=== PATIENT | male | born 1955 | race Caucasian/White ===

== ENCOUNTER 2016-10-01 12:18 | Inpatient (IN) | payer MEDICARE, OTHER ==
--- NOTE | ~2016-10-01 | EKG ---
PATIENT: DILLON CHAVEZ UNIT #: [id number] Ventricular Rate: 78 BPM Atrial Rate: 78 BPM P-R Interval: 176 ms QRS Duration: 100 ms Q-T Interval: 388 ms QTC Calculation(Bezet): 442 ms P [place]: 19 degrees Calculated R [place]: 9 degrees Calculated T [place]: 40 degrees Diagnosis Line: Normal sinus rhythm Diagnosis Line: Normal ECG Diagnosis Line: When compared with ECG of 01-APR-2016 14:00, Diagnosis Line: No significant change was found Diagnosis Line: Confirmed by YURY FORRESTER MD ([id number]) on 10/04/2016 Diagnosis Line: 3:59:20 PM INTERPRETING MD: MITZY FRAGA
--- NOTE | ~2016-10-01 | CR63 ---
[facility] A Service of [facility] & [facility] RADIOLOGY TEXT RESULTS PATIENT: DILLON CHAVEZ LOCATION: [place] [address]- : [birth year] UNIT #: [id number] AGE: [address]: Karla Mendenhall MD SEX: M ORDER DR: [id number] [facility] [address] [place], [place] [address] [id number] I MR#: [id number] Acc #: [id number] NAME: DILLON CHAVEZ : 1955 SEX: M STUDY DATE/TIME: 10/01/2016 15:29 UNIT: [facility] ROOM: [facility] STUDY DESCRIPTION: CR Chest 2 View Attending Physician: Karla Mendenhall M.D. Ordering Physician: Karla Mendenhall M.D. Primary Care Physician: Karla Mendenhall M.D. MEDICAL IMAGING REPORT This report is preliminary unless electronic signature is present EXAM 2-view chest HISTORY Chest pain x1 week, shortness of air. COMPARISON 04/01/2016 FINDINGS 2 views of the chest submitted. Study is suboptimal due to under penetrated technique. No definite infiltrates or effusions. There is cardiomegaly. No invasive tubes or lines identified. Osseous structures unremarkable. IMPRESSION Technically limited study due to under penetrated technique. There is stable cardiomegaly and diffuse aortic atherosclerotic changes but no definite acute abnormality. Dictated by... Myles Askew M.D. THIS IS AN ELECTRONICALLY VERIFIED REPORT Myles Askew M.D. at 10/03/2016 10:06 PM DYLON/tobi TD: 10/01/2016 18:59 JOB #: [id number] MEDICAL IMAGING REPORT Page 1 of 1 COPY
--- NOTE | ~2016-10-01 | HP ---
Unit #: [id number] #: [id number] Patient: DILLON CHAVEZ [id number] [address] [address] [id number] I MR#: [id number] NAME: DILLON CHAVEZ ROOM: 6 Age: 60 Sex: M Admission Date: 10/01/2016 : 1955 Attending Physician: Karla Mendenhall M.D. Primary Care Physician: Karla Mendenhall M.D. HISTORY AND PHYSICAL ADMISSION DIAGNOSES 1. Acute hypoxemic respiratory failure. 2. Acute exacerbation of chronic obstructive pulmonary disease. 3. Bronchitis versus pneumonia. 4. Diabetes. 5. Dyslipidemia. 6. Hypertension. 7. History of polio as a child with resultant hearing loss. 8. Chronic back pain. 9. Chronic lower extremity swelling. HISTORY OF PRESENT ILLNESS Mr. Chavez is a 60-year-old gentleman, patient of Dr. Karla Mendenhall, who was seen by Dr. Mendenhall today in the office with the complaints of increasing shortness of air and dyspnea, along with some yellow sputum production for two days. Patient denies any fever or chills, denies any chest pain, denies any headache or dizziness, denies any nausea, vomiting, diarrhea, or abdominal pain, and denies any syncope or presyncope. He was sent for direct admission. Currently, he appears without any significant respiratory distress. So, a 12-point review of systems on this patient basically is negative except as above. PAST MEDICAL HISTORY 1. Hypertension. 2. Diabetes. 3. Dyslipidemia. 4. History of polio. 5. Hearing loss. 6. Chronic back pain. 7. Chronic lower extremity swelling. PAST SURGICAL HISTORY Hernia repair. HOME MEDICATIONS I do not have them in front of me. These will be clarified with the pharmacy, and patient will be restarted accordingly. ALLERGIES Codeine. SOCIAL HISTORY He is a reformed smoker. He also states that he quit drinking a long time ago. No history of illicit drugs. Unit #: [id number] #: [id number] Patient: DILLON CHAVEZ FAMILY HISTORY Unremarkable. PHYSICAL EXAMINATION GENERAL: Patient is a 60-year-old obese gentleman in no acute distress. VITAL SIGNS: Stable. HEENT: Head is atraumatic. Pupils equal, round, and reactive to light and accommodation. Extraocular muscles intact. Oropharynx clear. NECK: Supple. No mass, no JVD, and no bruits. CHEST: Diminished bilaterally with some expiratory wheezing. CARDIOVASCULAR: S1 and S2. No murmurs. ABDOMEN: Obese, soft, nontender, and nondistended. LOWER EXTREMITIES: With some 1 or 2+ pitting edema. NEUROLOGIC: Alert, oriented, and answering questions appropriately. No focal deficits. DIAGNOSTIC STUDIES Labs and diagnostic currently pending, chest x-ray, CBC, and BMP. ASSESSMENT AND PLAN 1. Acute hypoxemic respiratory failure. Continue oxygen per nasal cannula, DuoNebs q.4 hours, Pulmicort inhaler b.i.d., and IV Solu-Medrol. Pulmonary evaluation with Dr. Cardoso who is his pharmacy teacher. 2. Questionable pneumonia versus bronchitis. Dr. Mendenhall ordered Rocephin and Zithromax which will be continued. Will send sputum for culture. 3. Hypertension. Resume home medications. 4. Dyslipidemia. Continue home medications. 5. Diabetes. Continue home medications. 6. Gastrointestinal and deep venous thrombosis prophylaxis. Continue Lovenox, and I believe he is on Protonix as a home medicine as well. Dictated by Fermin Rajan M.D. OC/nagi TD: 10/01/2016 20:42 JOB #: [id number] HISTORY AND PHYSICAL Page 1 of 1 X Fermin Rajan MD X HISTORY AND PHYSICAL
--- NOTE | ~2016-10-01 | CT57 ---
[facility] A Service of [facility] RADIOLOGY TEXT RESULTS PATIENT: DILLON CHAVEZ LOCATION: [facility] 55 : [birth year] UNIT #: [id number] AGE: [address]: Karla Mendenhall MD SEX: M ORDER DR: [id number] [place] [id number] [place], [place] [address] [id number] I MR#: [id number] Acc #: [id number] NAME: DILLON CHAVEZ : 1955 SEX: M STUDY DATE/TIME: 10/02/2016 18:48 UNIT: [facility] ROOM: [facility] STUDY DESCRIPTION: CT Chest Wo Cont Attending Physician: Karla Mendenhall M.D. Ordering Physician: Karla Mendenhall M.D. Primary Care Physician: Karla Mendenhall M.D. MEDICAL IMAGING REPORT This report is preliminary unless electronic signature is present EXAM CT chest without contrast. HISTORY Shortness of air and cough for a week. COMPARISON 07/12/2015 TECHNIQUE Axial 5 mm images were obtained through the chest without IV contrast. This CT exam was performed with one or more of the following radiation dose reduction techniques: automatic exposure control, adjustment of mA and/or kV according to patient size, and iterative reconstruction. FINDINGS The visualized portion of the upper abdomen are unremarkable. There is no mediastinal or hilar adenopathy. The aorta is normal in size. The thyroid gland is normal. There is minimal left lower lobe medial base atelectasis. No definite infiltrates are visible. The left lower lobe abnormality is more pronounced than on 07/12/2015. There are air bronchograms running through this region. The bones are unremarkable. IMPRESSION 1. There is about a 3 cm area of atelectasis in the left lower lobe medially with patent bronchi running through it. 2. Otherwise there is no active disease. Dictated by... William Costa M.D. [facility] A Service [facility] RADIOLOGY TEXT RESULTS PATIENT: DILLON CHAVEZ LOCATION: [facility] : 57 UNIT #: [id number] AGE: [address]: Karla Mendenhall MD SEX: M ORDER DR: THIS IS AN ELECTRONICALLY VERIFIED REPORT William Costa M.D. at 10/03/2016 2:00 PM Shavonne TD: 10/03/2016 08:13 JOB #: [id number] MEDICAL IMAGING REPORT Page 1 of 1 COPY
--- NOTE | ~2016-10-01 | DS ---
Unit #: [id number] #: [id number] Patient: TIBURCIO CHAVEZ [id number] [address] [address] [id number] I MR#: [id number] NAME: TIBURCIO CHAVEZ ROOM: [facility] Age: 60 Sex: M Admission Date: 10/01/2016 : 1955 Discharge Date: 10/05/2016 Attending Physician: Karla Mendenhall M.D. Primary Care Physician: Karla Mendenhall M.D. DISCHARGE SUMMARY CONSULTATION DURING HOSPITALIZATION Dr. Zhong from Pulmonary Services. FINAL DIAGNOSES 1. Acute hypoxic respiratory failure. 2. Acute exacerbation of chronic obstructive pulmonary disease. 3. Acute bronchitis. 4. Diabetes mellitus type 2, uncontrolled. 5. Hypertension. 6. Hyperlipidemia. 7. Chronic back pain. DISCHARGE MEDICATIONS 1. Zithromax 50 mg p.o. daily for four days. 2. Prednisone tapering dose 40 mg daily for three days then decrease 10 mg every three days until off. 3. Glucotrol 5 mg daily. 4. Os-Miguel Ángel 500 mg daily. 5. Protonix 40 mg daily. 6. Aspirin 325 mg daily. 7. Levemir 45 units subcu b.i.d. 8. Zestril 20 mg daily. 9. Flomax 0.4 mg daily. 10. Tylenol 650 mg q.6 p.r.n. 11. Toprol XL 50 mg twice a day. 12. Simvastatin 80 mg daily. 13. Nebulizer treatment q.i.d. The patient has it at home. DIAGNOSTIC STUDIES LABORATORY: Glucose 221. TSH 0.44. BMP shows sodium 132, potassium 4.6, chloride 94, BUN 18, creatinine 0.8. Troponin less than 0.03. CBC shows WBC 14.2, hemoglobin 11.9, hematocrit 38.1, platelet count 219. Procalcitonin level less than 0.05. IMAGING: Chest x-ray, PA and lateral, which was done on 10/01/2016, shows a technically difficult study, stable cardiomegaly and diffuse aortic atherosclerotic changes. CT scan of the chest without contrast was done on 10/02/2016, which shows a 3 cm area of atelectasis in the left lower lobe medially with patent bronchi running through it. Otherwise, there is no active disease. HOSPITAL COURSE Mr. Tiburcio Chavez is a 60-year-old male who was admitted from office setting with acute hypoxic respiratory failure. The patient was admitted to Unit #: [id number] #: [id number] Patient: TIBURCIO CHAVEZ telemetry unit at [facility]. The patient received IV Solu-Medrol mini neb treatment and IV antibiotic. He is doing much better at this time. There was no pneumonia on the chest x-ray or CT scan. The patient did very well. The patient is being discharged home. The patient does have oxygen at home, advised to continue to use. The patient will need to continue to follow with cardiology fellow. EXAMINATION ON DISCHARGE VITAL SIGNS: Blood pressure 136/76. Respiratory rate 20. Pulse 72. Temperature 97.5. Oxygen saturation 95%. CHEST: Decreased air entry bilateral. CARDIOVASCULAR: S1, S2 positive. Regular rhythm. ABDOMEN: Obese. DISCHARGE INSTRUCTIONS 1. The patient is being discharged home in stable condition. 2. Continue checking blood sugar at home twice a day and bring the log to us. 3. Insulin dose has been increased to 45 units subcu b.i.d. 4. Follow up with primary care provider in one week. Dictated by... Libby Du TD: 10/06/2016 09:30 JOB #: [id number] DISCHARGE SUMMARY Page 1 of 1 X Karla Mendenhall MD X DISCHARGE SUMMARY
--- NOTE | ~2016-10-01 | CO ---
Unit #: [id number] #: [id number] Patient: DILLON CHAVEZ [id number] [address] [place], [place] [address] [id number] I MR#: [id number] NAME: DILLON CHAVEZ ROOM: 6 Age: 60 Sex: M Admission Date: 10/01/2016 : 1955 Attending Physician: Karla Mendenhall M.D. Primary Care Physician: Karla Mendenhall M.D. CONSULTATION REPORT HISTORY OF PRESENT ILLNESS This is a 60-year-old gentleman, whom we see in the office with a history of COPD, diabetes mellitus, hypertension, and hyperlipidemia. He has a history of polio with hearing loss associated. He does not have significant weakness in the lower extremity edema. The patient has been sick for approximately 2 weeks. He has been in and out to several doctor's offices including ours. He was given antibiotic approximately 1 week ago without any significant stay. He presented to Dr. Mendenhall's office yesterday complaining of worsening cough productive of yellowish and green sputum, chronic chest tightness on the left, little bit of new chest tightness on the right. The patient is having increasing shortness of air and increased dyspnea on exertion. No headache, no fevers, no chills, no significant dyspnea, no polyuria, no nausea, vomiting, or diarrhea. No significant abdominal pain. He does have chronic lower extremity edema, which has gotten a little bit worse, but most significantly he has dyspnea on exertion. PAST MEDICAL HISTORY Significant for hypertension, diabetes, dyslipidemia, history of polio, history of chronic hearing loss, history of back pain, history of chronic lower extremity swelling. PAST SURGICAL HISTORY Significant for hernia repair. HOME MEDICATIONS Include Flomax 0.4 mg daily, metoprolol 50 mg b.i.d., lisinopril 20 mg daily, NovoLog 35 units b.i.d. with meals, pantoprazole 40 mg daily, aspirin 325 mg daily, Glucotrol 5 mg daily, calcium with vitamin D 600 mg daily, simvastatin 80 mg daily. FAMILY HISTORY Really noncontributory. No occupational history. SOCIAL HISTORY The patient has a history of smoking. Quit drinking very long time ago. No history of polysubstance use. PHYSICAL EXAMINATION VITAL SIGNS: T-current 98.8, pulse 98, respiratory rate 20, blood pressure 170/90. He is on 4 L nasal cannula and saturating 94%. In's 2342 and out's 500. HEENT: Extraocular movements are intact. Pupils are equal, round, and reactive to light. Head is normocephalic, atraumatic. Unit #: [id number] #: [id number] Patient: DILLON CHAVEZ NECK: Greater than 17 inches in circumference. There is no significant JVD that I can detect. There is no significant lymphadenopathy or severe thyromegaly. CHEST: Shows very decreased breath sounds bilaterally. There are no heaves. There is no fremitus. There is no real tenderness to palpation. CARDIOVASCULAR: Regular rate. No gallop. ABDOMEN: Soft, nontender, and nondistended. EXTREMITIES: Show edema +2. Pulses stable bilaterally. DIAGNOSTIC STUDIES LABORATORY RESULTS: White count 16.7. BUN and creatinine are 15 and 0.9, glucose 188, potassium 4.4. IMAGING STUDIES: Chest x-ray shows no clear infiltrate. ASSESSMENT AND PLAN Chronic obstructive pulmonary disease exacerbation, question pneumonia. Zithromax, Rocephin, and Solu-Medrol the patient is on. He is on sliding scale plus Levemir. The patient is on hydrocodone for pain. Lower extremity edema appears to not be very severe. I am going to check a BNP along with the labs to see if there is any evidence of fluid overload. Let us watch him and see if we get anything as the sputum. Let us watch him and see if the patient improves with steroids and antibiotics. If this turns out to be a bronchitis, he may be able to go home within 2 to 3 days. Thank you very much. Please page me at [phone] if you have any questions. Dictated by... Elida Cardoso M.D. BRIGIDO/stalin TD: 10/03/2016 04:57 JOB #: [id number] CONSULTATION REPORT Page 1 of 1 X Mekhi Cardoso MD CONSULTATION REPORT
[~2016-10-01 12:18] MED LIST: ACTOS30 MG PO; ALBUTEROL17 GM INH; ANORO ELLIPTA1 EACH INH; ASPIRIN81 M1 PO; BACTROBAN22 GM TOP; BENZONATATE PO; CALCIUM 500 + D1 TAB PO; COMBIVENT MININEB IH; FLAX SEED OIL1000 M1 PO; FLOMAX0.4 M1 DOB; GLIPIZIDE10 MG PO; HUMULIN 70/30 V10 ML SUBQ; HYDROCODON-ACE1 EAC4 PO; LEVEMIR; LEVOFLOXACIN250 MG PO; LISINOPRIL20 MG PO; LORTAB 10-3251 EACH PO; MEDROL4 MG/DOSE- PO; METFORMIN HCL1000 M1 PO; METFORMIN PO; METOPROLOL SUCC50 MG PO; NOVOLOG7030 SUBQ; PROTONIX PO; SANTYL15 G1 TOP; SIMVASTATIN80 MG PO; TYLENOL325 M1 PO
[2016-10-01] MEDS ORDERED: ASPIRIN ENTERI325 M1 PO (15:36)
[2016-10-01] MEDS ORDERED: PANTOPRAZOLE SO40 MG PO (15:36)
[2016-10-01] MEDS ORDERED: GLUCOTROL PO (15:37)
[2016-10-01] MEDS ORDERED: CALCIUM 600 +1 EAC9 PO (15:42)
[2016-10-01] MEDS ORDERED: SIMVASTATIN80 MG PO (15:43)
[2016-10-01] MEDS ORDERED: FLOMAX0.4 M1 PO (15:43)
[2016-10-01] MEDS ORDERED: METOPROLOL SUCC50 MG PO (15:44)
[2016-10-01] MEDS ORDERED: LISINOPRIL20 MG PO (15:45)
[2016-10-01] MEDS ORDERED: NOVOLOG100 UNITS/ SUBQ (15:53)
[2016-10-01 16:01] LABS: HEMATOCRIT 38.1 % (38.0-50.0); HEMOGLOBIN 11.9 gm/dL (13.0-16.0); MEAN CELL VOLUME 81.3 FL (83-96); MEAN CORPUSCULAR HEMOGLOBIN 25.3 PG (28-34); MEAN CORPUSCULAR HGB CONC 31.1 g/dL (30-36); MEAN PLATELET VOLUME 7.1 FL (6.5-11.5); RED BLOOD COUNT 4.68 X10e (3.90-5.60); RED CELL DISTRIBUTION WIDTH 15.1 % (11.0-15.5); WHITE BLOOD COUNT 14.2 X10e3 (4.0-10.5)
[2016-10-01 16:14] LABS: ALBUMIN SERUM 3.2 g/dL (3.5-5.0); BILIRUBIN,TOTAL 0.1 mg/dL (0.2-2.0); BUN/CREATININE RATIO 16.66; CALCIUM SERUM 8.9 mg/dL (8.4-10.2); CREATININE SERUM 0.9 mg/dL (0.6-1.4); GLOM FILT RATE Estimated 93.2 mL/min (>60); POTASSIUM 4.4 mmol/L (3.5-5.1); PROTEIN TOTAL SERUM 6.8 g/dL (6.0-8.3)
[2016-10-01 16:33] LABS: %MB 2.7 % (0.0-4.0); MB 4.4 ng/ml
[2016-10-02 10:39] LABS: HEMATOCRIT 39.3 % (38.0-50.0); HEMOGLOBIN 12.2 gm/dL (13.0-16.0); MEAN CELL VOLUME 82.4 FL (83-96); MEAN CORPUSCULAR HEMOGLOBIN 25.6 PG (28-34); MEAN PLATELET VOLUME 7.2 FL (6.5-11.5); RED BLOOD COUNT 4.77 X10e (3.90-5.60); RED CELL DISTRIBUTION WIDTH 14.9 % (11.0-15.5); WHITE BLOOD COUNT 16.4 X10e3 (4.0-10.5)
[2016-10-02 11:09] LABS: BUN/CREATININE RATIO 18.75; CALCIUM SERUM 8.6 mg/dL (8.4-10.2); CREATININE SERUM 0.8 mg/dL (0.6-1.4); GLOM FILT RATE Estimated 97.8 mL/min (>60); POTASSIUM 5.2 mmol/L (3.5-5.1)
[2016-10-03 05:34] LABS: HEMATOCRIT 38.9 % (38.0-50.0); MEAN CELL VOLUME 81.8 FL (83-96); MEAN CORPUSCULAR HEMOGLOBIN 25.1 PG (28-34); MEAN CORPUSCULAR HGB CONC 30.7 g/dL (30-36); MEAN PLATELET VOLUME 7.4 FL (6.5-11.5); RED BLOOD COUNT 4.76 X10e (3.90-5.60); RED CELL DISTRIBUTION WIDTH 15.4 % (11.0-15.5); WHITE BLOOD COUNT 15.6 X10e3 (4.0-10.5)
[2016-10-03 06:11] LABS: BUN/CREATININE RATIO 22.5; CALCIUM SERUM 8.8 mg/dL (8.4-10.2); CREATININE SERUM 0.8 mg/dL (0.6-1.4); GLOM FILT RATE Estimated 97.8 mL/min (>60); POTASSIUM 4.6 mmol/L (3.5-5.1)
[2016-10-05] MEDS ORDERED: LEVEMIR100 UNITS/ SUBQ (11:44)
[2016-10-05] MEDS ORDERED: COMBIVENT U/D3 M2 INH (11:46)
[2016-10-05] MEDS ORDERED: PREDNISONE PO (11:48)
[2016-10-05] MEDS ORDERED: ZITHROMAX500 MG PO (11:49)
[2016-10-05] MEDS ORDERED: ACETAMINOPHEN650 M4 PO (11:49)
== END 2016-10-05 15:09 | disposition home or self-care (01) | DRG 189 ==
LOC: CEDOF 12:18 → C5B 14:34
PROVIDERS: Hospitalist; Physician Assistant Medical
DX: J96.21 Acute and chronic respiratory failure with hypoxia (principal); J44.0 Chronic obstructive pulmonary disease with (acute) lower respiratory infection; J44.1 Chronic obstructive pulmonary disease with (acute) exacerbation; Z68.41 Body mass index [BMI] 40.0-44.9, adult; J20.9 Acute bronchitis, unspecified; E11.65 Type 2 diabetes mellitus with hyperglycemia; Z79.84 Long term (current) use of oral hypoglycemic drugs; I10 Essential (primary) hypertension; E78.5 Hyperlipidemia, unspecified; G89.29 Other chronic pain; M54.9 Dorsalgia, unspecified; H91.90 Unspecified hearing loss, unspecified ear; E66.01 Morbid (severe) obesity due to excess calories; Z88.5 Allergy status to narcotic agent; Z86.12 Personal history of poliomyelitis
CPT/HCPCS: 71020; 71250; 80048; 80053; 82308; 82550; 82553; 82947; 83880; 84443; 84484; 85027; 87070; 93005; 94640; 94760; J0456; J0696; J1650; J1815; J2920; J2930